=== PATIENT | male | born 1960 | race African-American/Black ===

== ENCOUNTER 2018-08-03 06:18 | Day surgery (SDC) | payer OTHER ==
[2018-08-02 12:37] VITALS: BMI 28.1
--- NOTE | 2018-08-03 07:35 | HP ---
History & Physical Update - History History: No Change - Physical Physical: No Change - Assessment Assessment: No Change - Plan Plan: No Change
--- NOTE | 2018-08-03 07:37 | OP ---
Operative Note - Note: Operative Date: 08/03/18 Pre-Operative Diagnosis: R renal calclulus Operation: ESWL R Findings: radiolucent R renal calculus Post-Operative Diagnosis: Same as Pre-op Surgeon: Yoandy Carr Anesthesiologist/EDGING SUPERVISOR: Mitch Barrios Anesthesia: Fractional Estimated Blood Loss (mls): 0 Operative Report Dictated: Yes
[2018-08-03] MEDS ORDERED: MIDAZOLAM HCL 2 MG/2 ML SINGLE DOSE VIAL ONE (07:42)
[2018-08-03] MEDS ORDERED: LIDOCAINE HCL/PF 2% SDV 5ML VIAL ONE (07:42)
[2018-08-03] MEDS ORDERED: PROPOFOL 20 ML ONE ×3 (07:42)
--- NOTE | 2018-08-03 09:32 | OP ---
DATE OF OPERATION: 08/03/2018 PREOPERATIVE DIAGNOSIS: Right renal calculus. POSTOPERATIVE DIAGNOSIS: Right renal calculus. PRODEDURE: Extracorporeal shock wave lithotripsy, right renal calculus. SURGEON: Yoandy Kimble MD PALLET REPAIRER: None. ANESTHESIA: IV sedation. ANESTHESIOLOGIST: Mitch Barrios MD SPECIMENS: None. CULTURES: None. DRAINS: None. ESTIMATED BLOOD LOSS: Negligible. COMPLICATIONS: None. PROCEDURE WAS FOLLOWS: Patient was brought into the operating room, placed on the operating table in supine position. After administration of intravenous sedation, patient was positioned over the treatment head, and under fluoroscopic guidance, no radiopaque renal calculi could be visualized. In the pelvis, there were several phleboliths. Now, under ultrasound guidance, approximately 5-mm right mid renal calculus was identified, targeted, and delivered 2500 shocks maximum kilovoltage with excellent fragmentation. He tolerated the procedure well. He was transferred to the recovery room in stable condition. YOANDY KIMBLE M.D. [id number]
[2018-08-03 10:37] VITALS: BP 133/75; PULSE 62; TEMP 97.5
== END 2018-08-03 10:35 | disposition home or self-care (01) ==
LOC: JASU-SURG 06:18
PROVIDERS: ATTEND Urology
PROC: 0TF3XZZ Fragmentation in Right Kidney Pelvis, External Approach (ICD-10-PCS; principal; 2018-08-03 08:00)
DX: N20.0 Calculus of kidney (principal)

== ENCOUNTER 2021-04-17 16:33 | Emergency (ER) | payer OTHER ==
[2021-04-17 16:50] VITALS: BP 107/62; PULSE 59; TEMP 98.7; BMI 25.0
[2021-04-17] MEDS ORDERED: CASIRIVIMAB/IMDEVIMAB 10 ML in SODIUM CHLORIDE 100 ML IVPB ONE (17:20)
[2021-04-17 18:37] LABS: BASO % 0.2 % (0-2.0); EOS % 0.5 % (0-4.5); HEMATOCRIT 39.1 % (35.4-49); HEMOGLOBIN 13.5 GM/dL (11.7-16.9); LYMPH % 36.3 % (8-40); MCH 28.7 pg (25.7-33.7); MCHC 34.5 g/dl (32.0-35.9); MEAN CELL VOLUME 83.1 fl (80-96); MEAN PLT VOLUME 8.2 fl (7.5-11.1); MONO % 8.7 % (3.8-10.2); NEUT % 54.3 % (42.8-82.8); PLATELET COUNT 189 10^3/uL (134-434); RDW 14.3 % (11.9-15.9); WHITE BLOOD COUNT 5.7 K/mm3 (4.0-10.0)
[2021-04-17 18:50] LABS: ALBUMIN 4.1 g/dl (3.4-5.0); CALCIUM 9.9 mg/dL (8.5-10.1)
[2021-04-17 18:54] LABS: CREATININE 1.3 mg/dL (0.55-1.3)
[2021-04-17 18:55] LABS: BILIRUBIN,TOTAL 0.5 mg/dL (0.2-1); TOT PROT 7.4 g/dl (6.4-8.2)
== END 2021-04-17 20:28 ==
LOC: JER 16:33
DX: U07.1 COVID-19 (principal)
CPT/HCPCS: 36415; 80053; 85025; 99284-25